=== PATIENT | male | born 1975 | race Two or more races ===

== ENCOUNTER 2016-10-19 22:16 | Emergency (ER) | payer OTHER ==
--- NOTE | 2016-10-21 01:36 | ER ---
ADMIT: 10/19/2016 RM/LOC: ER [facility] MR#: [id number] [address] [id number] NAYAN CARR Adrián [address] [place] [id number] Emergency Room Report SEX: M AGE: 41 : 1975 DATE: 10/19/2016 CHIEF COMPLAINT: Laceration to right index finger. HISTORY OF PRESENT ILLNESS: The patient is a 41-year-old male, sustained a laceration to his right index finger when he was cleaning a chicken earlier in the evening. He was unable to get the bleeding to stop, so he came in to get evaluated. He has no other injuries. PAST MEDICAL HISTORY: Negative. MEDICATIONS: None. ALLERGIES: NONE. SOCIAL HISTORY: Denies smoking, drug, or alcohol use. PHYSICAL EXAMINATION: GENERAL: The patient is alert, in no distress. EXTREMITIES: Examination of his right hand reveals he has a laceration to the dorsum of his proximal phalanx of his right hand. It is about 1.5 cm long, it is quite superficial. Based on his description, he probably did hit a vessel likely a vein earlier, but it is not bleeding at this time. EMERGENCY DEPARTMENT COURSE: As the wound appears to be quite superficial, he is neurovascularly intact distal and the wound is cleaned. We did clean it here, and I applied Dermabond and Steri-Strips with good approximation. There is no active bleeding. The patient is discharged home to return for any concerning symptoms, to follow up with Dr. Clarke if he has any signs of infection. If bleeding recurs, he is to apply direct pressure for 10 to 15 minutes and if it is still bleeding repeat that and if it does not stop, he can return to the ER. DIAGNOSIS: Laceration, right index finger. Justen Rivera MD/ katy JOB #: [id number] CC: Justen Rivera MD, Attending Physician
== END 2016-10-19 23:23 | disposition home or self-care (01) ==
LOC: ER 22:16
PROC: 0HQFXZZ Repair Right Hand Skin, External Approach (ICD-10-PCS; principal; 2016-10-19)
DX: S61.210A Laceration without foreign body of right index finger without damage to nail, initial encounter (principal); W27.4XXA Contact with kitchen utensil, initial encounter; Y93.E9 Activity, other interior property and clothing maintenance